=== PATIENT | male | born 1960 | race Caucasian/White ===

== ENCOUNTER → 2017-12-25 | Outpatient (CLI) | payer BC ==
[2017-12-25 12:14] LABS: BASOPHILS ABSOLUTE AUTO 0.02 K/mm3 (0.00-0.23); BASOPHILS PERCENT AUTO 0 % (0-2); EOSINOPHILS ABSOLUTE AUTO 0.28 K/mm3 (0.00-0.68); EOSINOPHILS PERCENT AUTO 5 % (0-6); Hematocrit 44.1 % (37.0-53.0); Hemoglobin 15.4 g/dL (13.5-17.5); IMMATURE GRAN ABSOLUTE AUTO 0.03 K/mm3 (0.00-0.10); IMMATURE GRAN PERCENT AUTO 1 % (0-1); LYMPHOCYTES ABSOLUTE AUTO 1.36 K/mm3 (0.84-5.20); LYMPHOCYTES PERCENT AUTO 23 % (21-46); MONOCYTES ABSOLUTE AUTO 0.42 K/mm3 (0.16-1.47); MONOCYTES PERCENT AUTO 7 % (4-13); Mean Corpuscular HGB 30.8 pg (26.0-34.0); Mean Corpuscular HGB Conc 34.9 g/dL (31.5-36.5); Mean Corpuscular Volume 88 fL (80-100); Mean Platelet Volume 9.9 fL (9.1-12.4); NEUTROPHILS ABSOLUTE AUTO 3.86 K/mm3 (1.96-9.15); NEUTROPHILS PERCENT AUTO 65 % (41-73); Platelet Count 155 K/mm3 (150-400); RDW Coefficient Variation 13.1 % (11.7-14.2); RDW Standard Deviation 41.6 fL (35.1-46.3); White Blood Cell Count 5.97 K/mm3 (4.00-11.30)
[2017-12-25 12:26] LABS: Anion Gap 9 mmol/L (6-16); Blood Urea Nitrogen 15 mg/dL (8-24); Bun/Creatinine Ratio 15.2 (12.0-20.0); CO2, Blood 28 mmol/L (21-32); Calcium, Blood 8.9 mg/dL (8.5-10.1); Chloride, Blood 103 mmol/L (98-108); Creatinine, Blood 0.99 mg/dL (0.60-1.20); Glomerular Filtration Rate >60 (60-); Glucose, Blood 109 mg/dL (70-99); Potassium, Blood 3.8 mmol/L (3.5-5.5); Sodium, Blood 140 mmol/L (136-145); Troponin I <0.017 ng/mL (0.000-0.040)
== END | disposition home or self-care (01) ==
LOC: LAB EV 12:06 → LAB SHORT 12:06
PROVIDERS: Family Medicine
DX: R07.9 Chest pain, unspecified (principal); R06.09 Other forms of dyspnea
CPT/HCPCS: 80048; 83880; 84484; 85025; 85379

== ENCOUNTER → 2019-05-05 | Outpatient (CLI) | payer BC ==
[~2019-05-05] MED LIST: Augmentin 875-1 EACH PO; Daily Multivit1 EAC2 PO; FLUOXETINE HCL60 MG PO; Glucosamine H1500 MG PO; IRBESARTAN150 MG PO; LOSARTAN POTAS100 MG PO; LOVASTATIN40 MG PO; OMEPRAZOLE20 MG PO; ONDA4ODT MM; Omega 3 1,0001 EACH PO; PROC5 PO; PROM25 PO; Protonix40 MG PO; Prozac20 MG PO; TAMSULOSIN HCL0.4 M1 PO; ZYRTEC10 M2 PO
[2019-05-05 09:14] LABS: BASOPHILS ABSOLUTE AUTO 0.02 K/mm3 (0.00-0.23); BASOPHILS PERCENT AUTO 0 % (0-2); EOSINOPHILS ABSOLUTE AUTO 0.09 K/mm3 (0.00-0.68); EOSINOPHILS PERCENT AUTO 1 % (0-6); Hematocrit 43.9 % (37.0-53.0); Hemoglobin 15.2 g/dL (13.5-17.5); IMMATURE GRAN ABSOLUTE AUTO 0.02 K/mm3 (0.00-0.10); IMMATURE GRAN PERCENT AUTO 0 % (0-1); LYMPHOCYTES ABSOLUTE AUTO 0.81 K/mm3 (0.84-5.20); LYMPHOCYTES PERCENT AUTO 11 % (21-46); MONOCYTES ABSOLUTE AUTO 0.58 K/mm3 (0.16-1.47); MONOCYTES PERCENT AUTO 8 % (4-13); Mean Corpuscular HGB 30.5 pg (26.0-34.0); Mean Corpuscular HGB Conc 34.6 g/dL (31.5-36.5); Mean Corpuscular Volume 88 fL (80-100); NEUTROPHILS ABSOLUTE AUTO 6.17 K/mm3 (1.96-9.15); NEUTROPHILS PERCENT AUTO 80 % (41-73); RDW Standard Deviation 41.6 fL (35.1-46.3); Red Blood Cell Count 4.99 M/mm3 (4.30-5.90); White Blood Cell Count 7.69 K/mm3 (4.00-11.30)
[2019-05-05 09:23] LABS: Alanine Aminotransfer (ALT/SGP 26 U/L (12-78); Albumin, Blood 4.2 g/dL (3.4-5.0); Albumin/Globulin Ratio 1.3 (0.8-1.8); Alk Phos 108 U/L (40-126); Anion Gap 13 mmol/L (6-16); Aspartate Aminotrans (AST/SGOT 26 U/L (12-37); Bilirubin, Total 0.9 mg/dL (0.1-1.0); Blood Urea Nitrogen 12 mg/dL (8-24); Bun/Creatinine Ratio 12.9 (12.0-20.0); CO2, Blood 24 mmol/L (21-32); Calcium, Blood 8.8 mg/dL (8.5-10.1); Chloride, Blood 105 mmol/L (98-108); Creatinine, Blood 0.93 mg/dL (0.60-1.20); Globulin, Blood 3.2 g/dL (2.2-4.0); Glomerular Filtration Rate >60 (60-); Glucose, Blood 123 mg/dL (70-99); Potassium, Blood 3.9 mmol/L (3.5-5.5); Sodium, Blood 142 mmol/L (136-145); Total Protein, Blood 7.4 g/dL (6.4-8.2)
[2019-05-05 09:24] LABS: Platelet Count 205 K/mm3 (150-400)
== END | disposition home or self-care (01) ==
LOC: LAB SHORT 09:07 → LAB EV 09:07
PROVIDERS: Family Medicine
DX: R10.9 Unspecified abdominal pain (principal)
CPT/HCPCS: 80053; 83690; 85025

== ENCOUNTER 2019-05-06 14:22 | Emergency (ER) | payer BC ==
[~2019-05-06] VITALS: Ht 193 cm; Wt 122.5 kg
[2019-05-06 15:12] LABS: BASOPHILS ABSOLUTE AUTO 0.02 K/mm3 (0.00-0.23); BASOPHILS PERCENT AUTO 0 % (0-2); EOSINOPHILS PERCENT AUTO 0 % (0-6); Hematocrit 45.5 % (37.0-53.0); Hemoglobin 15.7 g/dL (13.5-17.5); IMMATURE GRAN ABSOLUTE AUTO 0.04 K/mm3 (0.00-0.10); IMMATURE GRAN PERCENT AUTO 0 % (0-1); LYMPHOCYTES PERCENT AUTO 9 % (21-46); MONOCYTES ABSOLUTE AUTO 0.49 K/mm3 (0.16-1.47); MONOCYTES PERCENT AUTO 5 % (4-13); Mean Corpuscular HGB 30.1 pg (26.0-34.0); Mean Corpuscular HGB Conc 34.5 g/dL (31.5-36.5); Mean Corpuscular Volume 87 fL (80-100); Mean Platelet Volume 9.8 fL (9.1-12.4); NEUTROPHILS ABSOLUTE AUTO 7.65 K/mm3 (1.96-9.15); NEUTROPHILS PERCENT AUTO 85 % (41-73); Platelet Count 223 K/mm3 (150-400); RDW Coefficient Variation 12.7 % (11.7-14.2); RDW Standard Deviation 39.8 fL (35.1-46.3); Red Blood Cell Count 5.22 M/mm3 (4.30-5.90)
[2019-05-06 15:30] LABS: Alanine Aminotransfer (ALT/SGP 29 U/L (12-78); Albumin, Blood 4.4 g/dL (3.4-5.0); Albumin/Globulin Ratio 1.3 (0.8-1.8); Alk Phos 106 U/L (50-136); Anion Gap 11 mmol/L (6-16); Aspartate Aminotrans (AST/SGOT 28 U/L (12-37); Bilirubin, Total 1.4 mg/dL (0.1-1.0); Blood Urea Nitrogen 10 mg/dL (8-24); Bun/Creatinine Ratio 13.9 (12.0-20.0); CO2, Blood 22 mmol/L (21-32); Calcium, Blood 9.5 mg/dL (8.5-10.1); Chloride, Blood 105 mmol/L (98-108); Creatinine, Blood 0.72 mg/dL (0.60-1.20); Globulin, Blood 3.4 g/dL (2.2-4.0); Glomerular Filtration Rate >60 (60-); Glucose, Blood 108 mg/dL (70-99); Potassium, Blood 3.6 mmol/L (3.5-5.5); Sodium, Blood 138 mmol/L (136-145); Total Protein, Blood 7.8 g/dL (6.4-8.2)
[2019-05-06] MEDS ORDERED: Augmentin 875-1 EACH PO (16:18)
[2019-05-06] MEDS ORDERED: PROM25 PO (16:18)
[2019-05-20] MEDS ORDERED: Prozac20 MG PO (11:30)
[2019-05-20] MEDS ORDERED: ZYRTEC10 M2 PO (11:31)
[2019-05-20] MEDS ORDERED: Glucosamine H1500 MG PO (11:31)
[2019-05-20] MEDS ORDERED: Omega 3 1,0001 EACH PO (11:31)
[2019-05-20] MEDS ORDERED: Daily Multivit1 EAC2 PO (11:32)
[2019-05-20] MEDS ORDERED: OMEPRAZOLE20 MG PO (11:33)
[2019-05-20] MEDS ORDERED: LOSARTAN POTAS100 MG PO (11:33)
== END 2019-05-06 16:40 | disposition home or self-care (01) ==
LOC: ER 14:22
PROVIDERS: Physician Assistant
DX: K57.32 Diverticulitis of large intestine without perforation or abscess without bleeding (principal); F12.988 Cannabis use, unspecified with other cannabis-induced disorder; G43.A0 Cyclical vomiting, in migraine, not intractable; I10 Essential (primary) hypertension
CPT/HCPCS: 36415; 74177; 80053; 83690; 85025; 96374-59; 96375; 99284-25; J0780; J1200; J1885; J2405; Q9967

== ENCOUNTER 2019-05-08 08:44 | Emergency (ER) | payer BC ==
[~2019-05-08] VITALS: Ht 193 cm; Wt 117.9 kg
[~2019-05-08 08:44] MED LIST changes: -Daily Multivit1 EAC2 PO; -FLUOXETINE HCL60 MG PO; -Glucosamine H1500 MG PO; -IRBESARTAN150 MG PO; -LOSARTAN POTAS100 MG PO; -LOVASTATIN40 MG PO; -OMEPRAZOLE20 MG PO; -ONDA4ODT MM; -Omega 3 1,0001 EACH PO; -PROC5 PO; -Protonix40 MG PO; -Prozac20 MG PO; -TAMSULOSIN HCL0.4 M1 PO; -ZYRTEC10 M2 PO
[2019-05-08] MEDS ORDERED: FLUOXETINE HCL60 MG PO (09:11)
[2019-05-08] MEDS ORDERED: LOVASTATIN40 MG PO (09:11)
[2019-05-08] MEDS ORDERED: TAMSULOSIN HCL0.4 M1 PO (09:11)
[2019-05-08] MEDS ORDERED: ONDA4ODT MM (09:11)
[2019-05-08] MEDS ORDERED: IRBESARTAN150 MG PO (09:12)
[2019-05-08 09:31] LABS: BASOPHILS ABSOLUTE AUTO 0.02 K/mm3 (0.00-0.23); BASOPHILS PERCENT AUTO 0 % (0-2); EOSINOPHILS ABSOLUTE AUTO 0.07 K/mm3 (0.00-0.68); EOSINOPHILS PERCENT AUTO 1 % (0-6); Hematocrit 46.5 % (37.0-53.0); Hemoglobin 15.9 g/dL (13.5-17.5); IMMATURE GRAN ABSOLUTE AUTO 0.04 K/mm3 (0.00-0.10); IMMATURE GRAN PERCENT AUTO 0 % (0-1); LYMPHOCYTES ABSOLUTE AUTO 1.13 K/mm3 (0.84-5.20); LYMPHOCYTES PERCENT AUTO 12 % (21-46); MONOCYTES PERCENT AUTO 9 % (4-13); Mean Corpuscular HGB 30.5 pg (26.0-34.0); Mean Corpuscular HGB Conc 34.2 g/dL (31.5-36.5); Mean Corpuscular Volume 89 fL (80-100); Mean Platelet Volume 9.6 fL (9.1-12.4); NEUTROPHILS ABSOLUTE AUTO 7.23 K/mm3 (1.96-9.15); NEUTROPHILS PERCENT AUTO 78 % (41-73); Platelet Count 222 K/mm3 (150-400); RDW Coefficient Variation 12.6 % (11.7-14.2); RDW Standard Deviation 41.1 fL (35.1-46.3); Red Blood Cell Count 5.21 M/mm3 (4.30-5.90); White Blood Cell Count 9.29 K/mm3 (4.00-11.30)
[2019-05-08 09:49] LABS: Alanine Aminotransfer (ALT/SGP 23 U/L (12-78); Albumin, Blood 4.1 g/dL (3.4-5.0); Albumin/Globulin Ratio 1.2 (0.8-1.8); Alk Phos 104 U/L (50-136); Anion Gap 9 mmol/L (6-16); Aspartate Aminotrans (AST/SGOT 21 U/L (12-37); Bilirubin, Total 1.2 mg/dL (0.1-1.0); Blood Urea Nitrogen 11 mg/dL (8-24); Bun/Creatinine Ratio 13.2 (12.0-20.0); CO2, Blood 21 mmol/L (21-32); Chloride, Blood 108 mmol/L (98-108); Creatinine, Blood 0.83 mg/dL (0.60-1.20); Globulin, Blood 3.5 g/dL (2.2-4.0); Glomerular Filtration Rate >60 (60-); Glucose, Blood 101 mg/dL (70-99); Potassium, Blood 3.5 mmol/L (3.5-5.5); Sodium, Blood 138 mmol/L (136-145); Total Protein, Blood 7.6 g/dL (6.4-8.2)
[2019-05-08 10:22] LABS: Source, Urine Clean Catch
[2019-05-08 10:32] LABS: Appearance, Urine Clear (Clear); Bilirubin, Urine Neg (Neg); Blood, Urine Neg (Neg); Color, Urine Yellow (P-Yellow); Glucose Qualitative, Urine Neg (Neg); Ketones, Urine 3+ (Neg); Leukocyte Esterase, Urine Neg (Neg); Nitrite, Urine Neg (Neg); Protein, Urine Neg (Neg); Urobilinogen, Urine NORM (Normal)
[2019-05-08] MEDS ORDERED: PROC5 PO (11:53)
[2019-05-20] MEDS ORDERED: Prozac20 MG PO (11:30)
[2019-05-20] MEDS ORDERED: Glucosamine H1500 MG PO (11:31)
[2019-05-20] MEDS ORDERED: Omega 3 1,0001 EACH PO (11:31)
[2019-05-20] MEDS ORDERED: ZYRTEC10 M2 PO (11:31)
[2019-05-20] MEDS ORDERED: Daily Multivit1 EAC2 PO (11:32)
[2019-05-20] MEDS ORDERED: LOSARTAN POTAS100 MG PO (11:33)
[2019-05-20] MEDS ORDERED: OMEPRAZOLE20 MG PO (11:33)
== END 2019-05-08 12:19 | disposition home or self-care (01) ==
LOC: ER 08:44
PROVIDERS: Physician Assistant
DX: K57.32 Diverticulitis of large intestine without perforation or abscess without bleeding (principal); I10 Essential (primary) hypertension; F43.10 Post-traumatic stress disorder, unspecified
CPT/HCPCS: 36415; 74176; 80053; 81003; 83690; 85025; 96361; 96374; 96375; 99284-25; J2270; J2550; J7030

== ENCOUNTER 2019-05-11 16:07 | Emergency (ER) | payer BC ==
[~2019-05-11] VITALS: Ht 193 cm; Wt 116.6 kg
[~2019-05-11 16:07] MED LIST changes: +FLUOXETINE HCL60 MG PO; +IRBESARTAN150 MG PO; +LOVASTATIN40 MG PO; +ONDA4ODT MM; +PROC5 PO; +TAMSULOSIN HCL0.4 M1 PO
[2019-05-11 16:59] LABS: BASOPHILS ABSOLUTE AUTO 0.03 K/mm3 (0.00-0.23); BASOPHILS PERCENT AUTO 0 % (0-2); EOSINOPHILS PERCENT AUTO 1 % (0-6); Hemoglobin 16.7 g/dL (13.5-17.5); IMMATURE GRAN ABSOLUTE AUTO 0.04 K/mm3 (0.00-0.10); IMMATURE GRAN PERCENT AUTO 0 % (0-1); LYMPHOCYTES ABSOLUTE AUTO 1.05 K/mm3 (0.84-5.20); LYMPHOCYTES PERCENT AUTO 12 % (21-46); MONOCYTES ABSOLUTE AUTO 0.49 K/mm3 (0.16-1.47); MONOCYTES PERCENT AUTO 6 % (4-13); Mean Corpuscular HGB 30.4 pg (26.0-34.0); Mean Corpuscular HGB Conc 34.8 g/dL (31.5-36.5); Mean Corpuscular Volume 87 fL (80-100); Mean Platelet Volume 9.6 fL (9.1-12.4); NEUTROPHILS ABSOLUTE AUTO 7.21 K/mm3 (1.96-9.15); NEUTROPHILS PERCENT AUTO 81 % (41-73); Platelet Count 268 K/mm3 (150-400); RDW Coefficient Variation 12.3 % (11.7-14.2); RDW Standard Deviation 39.8 fL (35.1-46.3); White Blood Cell Count 8.92 K/mm3 (4.00-11.30)
[2019-05-11 17:18] LABS: Alanine Aminotransfer (ALT/SGP 26 U/L (12-78); Albumin, Blood 4.2 g/dL (3.4-5.0); Albumin/Globulin Ratio 1.1 (0.8-1.8); Alk Phos 103 U/L (50-136); Anion Gap 7 mmol/L (6-16); Aspartate Aminotrans (AST/SGOT 15 U/L (12-37); Bilirubin, Total 0.7 mg/dL (0.1-1.0); Blood Urea Nitrogen 11 mg/dL (8-24); Bun/Creatinine Ratio 13.4 (12.0-20.0); CO2, Blood 23 mmol/L (21-32); Calcium, Blood 9.2 mg/dL (8.5-10.1); Chloride, Blood 106 mmol/L (98-108); Creatinine, Blood 0.82 mg/dL (0.60-1.20); Globulin, Blood 3.7 g/dL (2.2-4.0); Glomerular Filtration Rate >60 (60-); Glucose, Blood 113 mg/dL (70-99); Potassium, Blood 3.7 mmol/L (3.5-5.5); Sodium, Blood 136 mmol/L (136-145); Total Protein, Blood 7.9 g/dL (6.4-8.2)
[2019-05-11 17:25] LABS: Source, Urine Clean Catch
[2019-05-11 17:36] LABS: Bilirubin, Urine Neg (Neg); Blood, Urine Neg (Neg); Glucose Qualitative, Urine Neg (Neg); Ketones, Urine Neg (Neg); Leukocyte Esterase, Urine Neg (Neg); Nitrite, Urine Neg (Neg); Protein, Urine Neg (Neg); Urobilinogen, Urine NORM (Normal)
[2019-05-11 17:45] LABS: Appearance, Urine Hazy (Clear); Color, Urine Yellow (P-Yellow)
[2019-05-11 17:48] LABS: Bacteria Few /hpf; Mucus Light (0-Heavy); Red Blood Cells, Urine Rare /hpf (0-2); Squamous Epithelial Cells Rare /hpf (Few); White Blood Cells, Urine Rare /hpf (0-5)
[2019-05-11] MEDS ORDERED: PROC5 PO (20:05)
[2019-05-11] MEDS ORDERED: Protonix40 MG PO (20:05)
[2019-05-20] MEDS ORDERED: Prozac20 MG PO (11:30)
[2019-05-20] MEDS ORDERED: Omega 3 1,0001 EACH PO (11:31)
[2019-05-20] MEDS ORDERED: ZYRTEC10 M2 PO (11:31)
[2019-05-20] MEDS ORDERED: Glucosamine H1500 MG PO (11:31)
[2019-05-20] MEDS ORDERED: Daily Multivit1 EAC2 PO (11:32)
[2019-05-20] MEDS ORDERED: LOSARTAN POTAS100 MG PO (11:33)
[2019-05-20] MEDS ORDERED: OMEPRAZOLE20 MG PO (11:33)
== END 2019-05-11 20:22 | disposition home or self-care (01) ==
LOC: ER 16:07
PROVIDERS: Physician Assistant
DX: R10.9 Unspecified abdominal pain (principal); I10 Essential (primary) hypertension; Z88.8 Allergy status to other drugs, medicaments and biological substances; Z79.899 Other long term (current) drug therapy
CPT/HCPCS: 36415; 80053; 81001; 83605; 83690; 85025; 93005; 93010; 96374; 96375; 99284-25; C9113; J2765

== ENCOUNTER 2019-05-27 09:53 | Day surgery (SDC) | payer BC ==
[~2019-05-27] VITALS: Ht 193 cm; Wt 122.6 kg
[~2019-05-27 09:53] MED LIST changes: +Daily Multivit1 EAC2 PO; +Glucosamine H1500 MG PO; +LOSARTAN POTAS100 MG PO; +OMEPRAZOLE20 MG PO; +Omega 3 1,0001 EACH PO; +Protonix40 MG PO; +Prozac20 MG PO; +ZYRTEC10 M2 PO
== END 2019-05-27 12:14 | disposition home or self-care (01) ==
LOC: ORSCSDS 09:53
PROVIDERS: Student in an Organized Health Care Education/Training Program
PROC: 0DB68ZX Excision of Stomach, Via Natural or Artificial Opening Endoscopic, Diagnostic (ICD-10-PCS; principal; 2019-05-27 11:15)
PROC: 0DB98ZX Excision of Duodenum, Via Natural or Artificial Opening Endoscopic, Diagnostic (ICD-10-PCS; principal; 2019-05-27 11:15)
DX: R11.0 Nausea (principal); K29.80 Duodenitis without bleeding; I10 Essential (primary) hypertension; G47.33 Obstructive sleep apnea (adult) (pediatric); Z79.899 Other long term (current) drug therapy; Z79.82 Long term (current) use of aspirin
CPT/HCPCS: 88305; 88342; J2704; J7120

== ENCOUNTER 2019-09-30 08:50 | Day surgery (SDC) | payer BC ==
[~2019-09-30] VITALS: Ht 193 cm; Wt 122.3 kg
--- NOTE | 2019-09-30 09:58 | NUR ---
09/30/19 0958 Carlos Chicas INJECTING MYLICON PER DR OCONNOR.
== END 2019-09-30 10:54 | disposition home or self-care (01) ==
LOC: ORSCSDS 08:50
PROVIDERS: Student in an Organized Health Care Education/Training Program
PROC: 0DBK8ZX Excision of Ascending Colon, Via Natural or Artificial Opening Endoscopic, Diagnostic (ICD-10-PCS; principal; 2019-09-30 10:00)
PROC: 0DBN8ZX Excision of Sigmoid Colon, Via Natural or Artificial Opening Endoscopic, Diagnostic (ICD-10-PCS; principal; 2019-09-30 10:00)
PROC: 0DBL8ZX Excision of Transverse Colon, Via Natural or Artificial Opening Endoscopic, Diagnostic (ICD-10-PCS; principal; 2019-09-30 10:00)
PROC: 0DBM8ZX Excision of Descending Colon, Via Natural or Artificial Opening Endoscopic, Diagnostic (ICD-10-PCS; principal; 2019-09-30 10:00)
DX: K57.32 Diverticulitis of large intestine without perforation or abscess without bleeding (principal); D12.2 Benign neoplasm of ascending colon; D12.3 Benign neoplasm of transverse colon; D12.4 Benign neoplasm of descending colon; D12.5 Benign neoplasm of sigmoid colon; K63.5 Polyp of colon; K64.8 Other hemorrhoids; I10 Essential (primary) hypertension; G47.33 Obstructive sleep apnea (adult) (pediatric); K21.9 Gastro-esophageal reflux disease without esophagitis; Z79.899 Other long term (current) drug therapy; E66.9 Obesity, unspecified; Z68.32 Body mass index [BMI] 32.0-32.9, adult
CPT/HCPCS: 88305; J2704; J7120

== ENCOUNTER 2020-06-02 13:58 | Inpatient (IN) | payer BC, SELFPAY ==
[~2020-06-02] VITALS: Ht 193 cm; Wt 122.5 kg
[~2020-06-02 13:58] MED LIST changes: +ASPI81CH PO; +BENEFIBER236 G1 PO; +CARV6.25 PO; +COQ1050 MG PO; +DICY20 PO; +FISH OIL 1,2001 EAC7 PO; +GLUCOSAMINE PO; +LOSA50 PO; +LOVA40 PO; +METAMUCIL POWD575 GM PO; +MIRALAX119 GM PO; +MULVITA PO; +TAMS.4ER PO; +TUMS500 MG PO; +VITAMIN D310 MC4 PO; +ZYRTEC10 M3 PO
--- NOTE | 2020-06-07 08:50 | NUR ---
Ambulatory in Day Surgery History, Chart, Medications and Allergies reviewed before start of procedure. Lungs clear T/O to Auscultation. Pre-Op teaching done. Pt verbalizes understanding.
--- NOTE | 2020-06-07 13:00 | NUR ---
pt able to wiggle toes,unable to lift leg. asent touch sensation from T7-L5. epidural insertion site WNL. dried sanguinous drainage around insertion under window, foam pressure tape intact from insertionto shoulder. pt denies pain, denies n/v.
--- NOTE | 2020-06-07 13:00 | NUR ---
pt arrived to room on own bed, a/o x 4,pleasant/cooperative. pt denies pain, epidural site with dried drainage around insertion site, adhesive tape intact from insertion to shoulder. COREY dressing compressed and intact midline abd. pt denies n/v. dermatomes assessed, pt wiggles toes, unable to lift legs. PO clear liquids offered.
--- NOTE | 2020-06-07 18:29 | NUR ---
shift summary: epidural vs q1 continues WNL, no acute changes. pt tolerating PO intake, denies n/v. pt denies pain. epidural insertion site WNL, dried drainage, showing no new drainage; foam tape intact. absent sensation from T7-L4/5; pt able to wiggle toes, rotated foot, lift BLE. Pt a/o x 4, pleasant/cooperative, has visited with his spouse this shift. CPAC set up for tonight, continuous bioxx in place. Almonte catheter patent/draining clear yellow urine.
[2020-06-08 04:34] LABS: BASOPHILS ABSOLUTE AUTO 0.01 K/mm3 (0.00-0.23); BASOPHILS PERCENT AUTO 0 % (0-2); EOSINOPHILS ABSOLUTE AUTO 0.03 K/mm3 (0.00-0.68); EOSINOPHILS PERCENT AUTO 0 % (0-6); Hematocrit 38.4 % (37.0-53.0); Hemoglobin 12.8 g/dL (13.5-17.5); IMMATURE GRAN ABSOLUTE AUTO 0.05 K/mm3 (0.00-0.10); IMMATURE GRAN PERCENT AUTO 0 % (0-1); LYMPHOCYTES ABSOLUTE AUTO 1.42 K/mm3 (0.84-5.20); LYMPHOCYTES PERCENT AUTO 12 % (21-46); MONOCYTES ABSOLUTE AUTO 1.17 K/mm3 (0.16-1.47); MONOCYTES PERCENT AUTO 10 % (4-13); Mean Corpuscular HGB 29.7 pg (26.0-34.0); Mean Corpuscular HGB Conc 33.3 g/dL (31.5-36.5); Mean Corpuscular Volume 89 fL (80-100); Mean Platelet Volume 9.6 fL (9.1-12.4); NEUTROPHILS PERCENT AUTO 78 % (41-73); Platelet Count 173 K/mm3 (150-400); RDW Coefficient Variation 12.8 % (11.7-14.2); RDW Standard Deviation 42.1 fL (35.1-46.3); Red Blood Cell Count 4.31 M/mm3 (4.30-5.90); White Blood Cell Count 12.28 K/mm3 (4.00-11.30)
[2020-06-08 04:54] LABS: Anion Gap 5 mmol/L (6-16); Blood Urea Nitrogen 11 mg/dL (8-24); Bun/Creatinine Ratio 14.7 (12.0-20.0); CO2, Blood 27 mmol/L (21-32); Calcium, Blood 8.2 mg/dL (8.5-10.1); Chloride, Blood 107 mmol/L (98-108); Creatinine, Blood 0.75 mg/dL (0.60-1.20); Glomerular Filtration Rate >60 (60-); Glucose, Blood 106 mg/dL (70-99); Potassium, Blood 3.9 mmol/L (3.5-5.5); Sodium, Blood 139 mmol/L (136-145)
--- NOTE | 2020-06-08 06:00 | NUR ---
SHIFT SUMMARY PT IS A/O X4. S/P SIGMOID COLECTOMY. COREY IN PLACE TO ABD WITH SOME DRAINAGE BUT IS DRY WITH FOAM COMPRESSED AND GREEN LIGHT ON. EPIDURAL IN PLACE, MANAGING PAIN WELL. VSS OVERNIGHT. PT'S ONLY COMPLAINT IS OF HEADACHE, AND WAS MED WITH TORADOL FOR THIS. ALSO PROVIDED WITH COOL WASHCLOTH. PT REPORTS PASSING FLATUS, DENIES NAUSEA AND EMESIS OVERNIGHT. PT HAS STARTED TO GAIN MORE SENSATION FROM EPIDURAL, REPORTING HE CAN FEEL PRESSURE/TOUCH T/O. WEARS CPAP AT NIGHT. PT RESTING IN BED AT THIS TIME, CALL LIGHT IN REACH.
--- NOTE | 2020-06-08 08:33 | NUR ---
06/08/20 0833 Francy Costello VERIFICATIONS: EDIT CHART.
--- NOTE | 2020-06-08 17:05 | NUR ---
Shift summary Patient had large liquid brown bowel movement today and is passing flatus. Pain controlled with Epidural. VSS. Patient is a SBA in the room. Midline incision CDI. Patient was up in the chair for several hours today. Call light within patient reach.
--- NOTE | 2020-06-09 04:39 | NUR ---
SHIFT SUMMARY PT IS A/O X4, SBA WHEN UP. S/P SIGMOID COLECTOMY. EPIDURAL IN PLACE, MANAGING PAIN WELL. REHMAN PATENT WITH STAT LOCK ON. USING CPAP AT NIGHT, BIOX ON AT BEDSIDE. KPAD PROVIDED FOR NECK/BACK PAIN. PT REPORTS PASSING FLATUS OVERNIGHT AND REPORTS BM DAY SHIFT 06/08. TOLERATING FULL LIQUID DIET WITHOUT NAUSEA. PT RESTING IN BED AT THIS TIME, CALL LIGHT IN REACH.
--- NOTE | 2020-06-09 17:11 | NUR ---
Shift summary Patient had a large loose brown bowel movement today. Tolerating reg diet. Incision CDI. SBA in the room. Epidural in place and managing pain per pt. Call light within patient reach.
--- NOTE | 2020-06-10 05:58 | NUR ---
SHIFT SUMMARY: PT POD#3 FOR SIGMOID COLECTOMY. MIDLINE COREY INTACT AND COMPRESSED. PAIN BEING MANAGED WITH FENTANYL EPIDURAL. PT PASSING FLATUS AND STOOL. AMBULATING TO BATHROOM WITH SBA. REHMAN PATENT AND DRAINING TO GRAVITY. 1000CC OF URINE EMPTIED FROM BAG. PT DELTA REG DIET AND DENIES N/V. PLAN FOR EPIDURAL TO BE TAKEN OUT TODAY.
--- NOTE | 2020-06-10 16:12 | NUR ---
Shift summary Epidural removed this am. Almonte out. Patient tolerating [place] for pain control. Patient had a shower today. Having loose brown bowel movements. Passing Flatus. Patient is independent in the room. Tolerating regular diet. Spouse at bedside this afternoon offering support. Call light within patient reach.
--- NOTE | 2020-06-11 05:39 | NUR ---
SHIFT SUMMARY LYING IN SEMI FOWLERS WITH EYES CLOSED, HAS RESTED WELL. GIVEN PAIN MED X2 PER PT REQUEST. NO SIGNIFICANT CHANGES NOTED THIS SHIFT. REMAINS AAO X4, BOGGS, FAC. RESPIRATIONS EVEN AND UNLABORED ON RA, ABLE TO MAINTAIN SAT >90%. SL PIV IS PATENT, FLUSING WITH EASE THROUGHOUT SHIFT. MIDLINE COREY REMAINS COMPRESSED, DRY, AND INTACT. DENIES PAIN, DISCOMFORT, OR FURTHER NEEDS. SAFETY MEASURES IN PLACE. WILL CONTINUE TO MONITOR.
[2020-06-11] MEDS ORDERED: HYDR1TAB94 PO (13:37)
--- NOTE | 2020-06-11 14:19 | NUR ---
Discharg home. IV out. Discharge instructions given, explained and signed. Patient to follow up with Dr. Lin. Patient/spouse denied questions or concerns at discharge.
== END 2020-06-11 14:15 | disposition home or self-care (01) | DRG 331 ==
LOC: SURS 06-07 07:31 → PRE IP 06-07 08:45 → SURS 06-07 12:50
PROVIDERS: ADMIT Surgery
PROC: 0DTN0ZZ Resection of Sigmoid Colon, Open Approach (ICD-10-PCS; principal; 2020-06-07 08:45)
DX: K57.32 Diverticulitis of large intestine without perforation or abscess without bleeding (principal); I10 Essential (primary) hypertension; G47.33 Obstructive sleep apnea (adult) (pediatric); N40.0 Benign prostatic hyperplasia without lower urinary tract symptoms; F41.9 Anxiety disorder, unspecified; F32.9 Major depressive disorder, single episode, unspecified
CPT/HCPCS: 36415; 80048; 85025; 88307; 94762; A9270; J0295; J1100; J1650; J1885; J2250; J2370; J2405; J2704; J3010; J7120; V2790

== ENCOUNTER 2020-11-01 20:46 | Emergency (ER) | payer BC, OTHER ==
[~2020-11-01] VITALS: Ht 193 cm; Wt 123.4 kg
[~2020-11-01 20:46] MED LIST changes: +HYDR1TAB94 PO
== END 2020-11-02 00:12 | disposition home or self-care (01) ==
LOC: ER 20:46
DX: S32.019A Unspecified fracture of first lumbar vertebra, initial encounter for closed fracture (principal); I10 Essential (primary) hypertension; Z88.8 Allergy status to other drugs, medicaments and biological substances; Z79.899 Other long term (current) drug therapy; W11.XXXA Fall on and from ladder, initial encounter
CPT/HCPCS: 72080; 96372; 99283-25; A9270; J1885

== ENCOUNTER → 2021-04-02 | Outpatient (CLI) | payer BC | END | disposition home or self-care (01) | LOC: LAB SHORT 07:40 | DX: L60.2 Onychogryphosis (principal); B35.1 Tinea unguium | CPT/HCPCS: 88305; 88312 ==

== ENCOUNTER → 2022-04-17 | Outpatient (CLI) | payer BC ==
[2022-04-17 09:37] LABS: BASOPHILS ABSOLUTE AUTO 0.02 K/mm3 (0.00-0.23); BASOPHILS PERCENT AUTO 0 % (0-2); EOSINOPHILS ABSOLUTE AUTO 0.21 K/mm3 (0.00-0.68); EOSINOPHILS PERCENT AUTO 4 % (0-6); Hematocrit 43.8 % (37.0-53.0); Hemoglobin 15.3 g/dL (13.5-17.5); IMMATURE GRAN ABSOLUTE AUTO 0.02 K/mm3 (0.00-0.10); IMMATURE GRAN PERCENT AUTO 0 % (0-1); LYMPHOCYTES ABSOLUTE AUTO 1.17 K/mm3 (0.84-5.20); LYMPHOCYTES PERCENT AUTO 20 % (21-46); MONOCYTES ABSOLUTE AUTO 0.49 K/mm3 (0.16-1.47); MONOCYTES PERCENT AUTO 8 % (4-13); Mean Corpuscular HGB 31.2 pg (26.0-34.0); Mean Corpuscular HGB Conc 34.9 g/dL (31.5-36.5); Mean Corpuscular Volume 89 fL (80-100); Mean Platelet Volume 9.5 fL (9.1-12.4); NEUTROPHILS ABSOLUTE AUTO 3.91 K/mm3 (1.96-9.15); NEUTROPHILS PERCENT AUTO 67 % (41-73); Platelet Count 177 K/mm3 (150-400); RDW Coefficient Variation 12.7 % (11.7-14.2); RDW Standard Deviation 41.8 fL (35.1-46.3); White Blood Cell Count 5.82 K/mm3 (4.00-11.30)
[2022-04-17 10:05] LABS: Alanine Aminotransfer (ALT/SGP 29 U/L (12-78); Albumin, Blood 3.7 g/dL (3.4-5.0); Albumin/Globulin Ratio 1.2 (0.8-1.8); Alk Phos 83 U/L (50-136); Anion Gap 5 mmol/L (6-16); Aspartate Aminotrans (AST/SGOT 22 U/L (12-37); Blood Urea Nitrogen 20 mg/dL (8-24); Bun/Creatinine Ratio 24.8 (12.0-20.0); CHOL/HDL RATIO 3.1; CO2, Blood 27 mmol/L (21-32); Calcium, Blood 8.7 mg/dL (8.5-10.1); Chloride, Blood 107 mmol/L (98-108); Cholesterol 168 mg/dL (50-200); Creatinine, Blood 0.81 mg/dL (0.60-1.20); Glomerular Filtration Rate 101 (60-); Glucose, Blood 112 mg/dL (70-99); HDL Cholesterol 54 mg/dL (>39); LDL/HDL RATIO 1.5; Low Density Lipoprotein Chol 79 mg/dL (0-110); Potassium, Blood 4.1 mmol/L (3.5-5.5); Sodium, Blood 139 mmol/L (136-145); Total Protein, Blood 6.7 g/dL (6.4-8.2); Triglycerides 173 mg/dL (30-160); Very Low Density Lipoprot Chol 34 mg/dL (6-32)
[2022-04-17 10:48] LABS: Microalb/Creat Ratio UR, Rand 5.653 mg/g (0.000-30.000); Microalbumin, Random Urine 8.48 mg/L (0.000-20.000)
== END | disposition home or self-care (01) ==
LOC: LAB SHORT 08:12 → LAB 08:12
PROVIDERS: Hospitalist
DX: I10 Essential (primary) hypertension (principal); E78.5 Hyperlipidemia, unspecified
CPT/HCPCS: 36415; 80053; 80061; 82043; 82570; 84443; 85025

== ENCOUNTER → 2023-04-28 | Outpatient (CLI) | payer BC | LOC: LAB 07:57 → LAB SHORT 07:57 | DX: B35.1 Tinea unguium (principal) | CPT/HCPCS: 87220 ==

== ENCOUNTER 2024-06-17 10:31 | Day surgery (SDC) | payer BC ==
[~2024-06-17] VITALS: Ht 190.5 cm; Wt 128.0 kg
[~2024-06-17 10:31] MED LIST changes: +Lactated Ringer's 1,000 ML IV ONE
[2024-06-17] MEDS ORDERED: PREG25 (10:55)
[2024-06-17] MEDS ORDERED: Crestor40 MG (10:55)
[2024-06-17] MEDS ORDERED: MELO7.5 (10:55)
[2024-06-17] MEDS ORDERED: NAC600 MG (10:56)
[2024-06-17] MEDS ORDERED: CYCL10 (10:56)
[2024-06-17] MEDS ORDERED: QUERCETIN500 MG (10:56)
[2024-06-17] MEDS ORDERED: SPIR25 (10:57)
[2024-06-17] MEDS ORDERED: Aspir 8181 MG PO (11:19)
[2024-06-17] MEDS ORDERED: Lactated Ringer's 1,000 ML IV ONE (11:20)
[2024-06-17] MEDS ORDERED: propofoL 50 ML IV ONE (11:30)
[2024-06-17 14:36] VITALS: BP 131/80
== END 2024-06-17 12:30 | disposition home or self-care (01) ==
LOC: ORSCSDS 10:31
PROVIDERS: Specialist
PROC: 0DB48ZX Excision of Esophagogastric Junction, Via Natural or Artificial Opening Endoscopic, Diagnostic (ICD-10-PCS; principal; 2024-06-17 12:00)
PROC: 0DB78ZX Excision of Stomach, Pylorus, Via Natural or Artificial Opening Endoscopic, Diagnostic (ICD-10-PCS; principal; 2024-06-17 12:00)
PROC: 0DB98ZX Excision of Duodenum, Via Natural or Artificial Opening Endoscopic, Diagnostic (ICD-10-PCS; principal; 2024-06-17 12:00)
PROC: 0DB58ZX Excision of Esophagus, Via Natural or Artificial Opening Endoscopic, Diagnostic (ICD-10-PCS; principal; 2024-06-17 12:00)
PROC: 0DJD8ZZ Inspection of Lower Intestinal Tract, Via Natural or Artificial Opening Endoscopic (ICD-10-PCS; principal; 2024-06-17 12:00)
DX: R11.2 Nausea with vomiting, unspecified (principal); Z12.11 Encounter for screening for malignant neoplasm of colon; Z86.0101 Personal history of adenomatous and serrated colon polyps; K20.90 Esophagitis, unspecified without bleeding; K44.9 Diaphragmatic hernia without obstruction or gangrene; K64.8 Other hemorrhoids; K57.30 Diverticulosis of large intestine without perforation or abscess without bleeding; K29.70 Gastritis, unspecified, without bleeding; E78.5 Hyperlipidemia, unspecified; I10 Essential (primary) hypertension; G47.33 Obstructive sleep apnea (adult) (pediatric); F43.10 Post-traumatic stress disorder, unspecified; F33.9 Major depressive disorder, recurrent, unspecified; Z79.899 Other long term (current) drug therapy; Z79.82 Long term (current) use of aspirin; E66.9 Obesity, unspecified; Z68.37 Body mass index [BMI] 37.0-37.9, adult
CPT/HCPCS: 43239; G0105; 88305; 88342; J2704; J7120